=== PATIENT | female | born 1990 | race African-American/Black ===

== ENCOUNTER 2020-12-12 05:55 | Inpatient (IN) | payer OTHER, SELFPAY ==
[2020-12-10 12:31] LABS: BILIRUBIN,URINE NEGATIVE (NEGATIVE); BLOOD, URINE NEGATIVE (NEGATIVE); CLARITY/URINE CLEAR (CLEAR); COLOR,URINE YELLOW (YELLOW); GLUCOSE,URINE NEGATIVE (NEGATIVE); KETONES,URINE 3+ (NEGATIVE); LEUKOCYTE ESTERASE ,URINE NEGATIVE (NEGATIVE); NITRITE, URINE NEGATIVE (NEGATIVE); PH,URINE 5.5 (5.0-8.0); PROTEIN URINE NEGATIVE (NEGATIVE); UROBILINOGEN,URINE 0.2 (0.2-1.0)
[2020-12-10 12:34] LABS: BASOPHILS % (AUTO) 0.5 % (0.0-2.0); EOSINOPHILS % (AUTO) 0.1 % (0.0-4.0); HEMATOCRIT 36.1 % (36-48); HEMOGLOBIN 12.1 g/dL (12.0-16.0); LYMPHOCYTES # (AUTO) 1.9 K/uL (1.0-5.5); LYMPHOCYTES % (AUTO) 48.2 % (20.5-51.5); MEAN CORPUSCULAR HEMOGLOBIN 32 pg (27-31); MEAN CORPUSCULAR HGB CONC 34 % (32-36); MEAN CORPUSCULAR VOLUME 96 fL (79.0-98.0); MONOCYTES # (AUTO) 0.3 K/uL (0.0-1.0); MONOCYTES % (AUTO) 7.8 % (1.7-9.3); NEUTROPHILS # (AUTO) 1.7 K/uL (1.8-7.7); NEUTROPHILS % (AUTO) 43.4 % (40.0-70.0); PLATELET COUNT (AUTO) 164 K/uL (130-430); RED BLOOD CELL COUNT(AUTO) 3.77 MIL/uL (4.2-6.2); RED CELL DISTRIBUTION WIDTH 12.9 % (9.0-15.0); WHITE BLOOD COUNT (AUTO) 3.9 K/uL (4.8-10.8)
[2020-12-10 12:50] LABS: ALBUMIN 3.8 g/dL (3.4-4.8); CALCIUM 8.8 mg/dL (8.4-11.0); CREATININE 0.77 mg/dL (0.55-1.30); POTASSIUM 4.3 mmol/L (3.5-5.1); TOTAL BILIRUBIN 0.8 mg/dL (0.0-1.0)
[~2020-12-12] VITALS: Ht 167.6 cm; Wt 64.9 kg
[2020-12-12 06:36] LABS: HCG,QUAL RESULT NEGATIVE (NEGATIVE)
[2020-12-12] MEDS ORDERED: HYDROmorphone 2 MG/ML VIAL IVP ONE (07:31)
[2020-12-12] MEDS ORDERED: BUPIVACAINE /EPINEPHRINE/PF 0.25% 30 ML VIAL INJ ONE (07:31)
[2020-12-12] MEDS ORDERED: ROCURONIUM BROMIDE 10 MG/ML (ZEMURON) IV ONE (07:31)
[2020-12-12] MEDS ORDERED: PROPOFOL 200MG/ 20ML VIAL (DIPRIVAN) IV ONE (07:31)
[2020-12-12] MEDS ORDERED: ONDANSETRON HCL 4 MG/2 ML VIAL IVP ONE (07:31)
[2020-12-12] MEDS ORDERED: SUGAMMADEX SODIUM 200 MG/2 ML VIAL IV ONE (07:31)
[2020-12-12] MEDS ORDERED: SUCCINYLCHOLINE CHLORIDE 20 MG/ML(QUELICIN) IVP ONE (07:31)
[2020-12-12] MEDS ORDERED: LR 1,000 ML IV.SOLN IV ONE (07:31)
[2020-12-12] MEDS ORDERED: DESFLURANE 15 MIN GAS INH ONE (07:31)
[2020-12-12] MEDS ORDERED: DEXAMETHASONE SOD PHOSPHATE 4 MG/ML VIAL IVP ONE (07:31)
[2020-12-12] MEDS ORDERED: KETOROLAC TROMETHAMINE 30 MG VIAL IVP ONE (07:31)
[2020-12-12] MEDS ORDERED: NS IRRIG SOLN 1000 ML IR ONE (07:31)
[2020-12-12] MEDS ORDERED: ONDANSETRON HCL 4 MG/2 ML VIAL IVP PRN ×2 (07:45→09:45)
[2020-12-12] MEDS ORDERED: LR 1,000 ML IV ONE (07:45)
[2020-12-12] MEDS ORDERED: KETOROLAC TROMETHAMINE 30 MG VIAL IM PRN (07:45)
[2020-12-12] MEDS ORDERED: HYDROmorphone 1 INJ. 1 MG/ML CARTRIDGE IVP PRN ×2 (09:45)
[2020-12-12 10:57] VITALS: BP_SYST 111
[2020-12-12 12:00] VITALS: BP_SYST 98
[2020-12-12 16:09] VITALS: BP_SYST 102
[2020-12-12] MEDS: MORPHINE 4 MG INJ. 4 MG/ML VIAL IVP PRN ×2 (17:47→22:52)
[2020-12-12 20:00] VITALS: BP_SYST 113
[2020-12-13 00:11] VITALS: BP_SYST 117
[2020-12-13] MEDS: MORPHINE 4 MG INJ. 4 MG/ML VIAL IVP PRN ×3 (04:14→11:38)
[2020-12-13 08:00] VITALS: BP_SYST 122
[2020-12-13 08:03] LABS: BASOPHILS % (AUTO) 0.2 % (0.0-2.0); EOSINOPHILS % (AUTO) 0.1 % (0.0-4.0); HEMATOCRIT 28.4 % (36-48); HEMOGLOBIN 9.6 g/dL (12.0-16.0); LYMPHOCYTES # (AUTO) 1.2 K/uL (1.0-5.5); LYMPHOCYTES % (AUTO) 22.3 % (20.5-51.5); MEAN CORPUSCULAR HEMOGLOBIN 32 pg (27-31); MEAN CORPUSCULAR HGB CONC 34 % (32-36); MEAN CORPUSCULAR VOLUME 96 fL (79.0-98.0); MONOCYTES # (AUTO) 0.6 K/uL (0.0-1.0); NEUTROPHILS # (AUTO) 3.6 K/uL (1.8-7.7); NEUTROPHILS % (AUTO) 66.4 % (40.0-70.0); PLATELET COUNT (AUTO) 125 K/uL (130-430); RED BLOOD CELL COUNT(AUTO) 2.96 MIL/uL (4.2-6.2); RED CELL DISTRIBUTION WIDTH 12.9 % (9.0-15.0); WHITE BLOOD COUNT (AUTO) 5.4 K/uL (4.8-10.8)
[2020-12-13 12:05] VITALS: BP_SYST 95
[2020-12-13] MEDS ORDERED: IBUPROFEN 800 MG TABLET PO PRN (14:15)
[2020-12-13] MEDS: OXYCODONE/ACETAMINOPHEN 5-325 TABLET PO PRN ×2 (14:42→23:03)
[2020-12-13 16:05] VITALS: BP_SYST 92
[2020-12-13] MEDS ORDERED: IBUPROFEN 800 MG TABLET PO ONE (19:30)
[2020-12-13 20:00] VITALS: BP_SYST 113
[2020-12-13] MEDS: DOCUSATE SODIUM 100 MG CAPSULE PO SCH (20:06)
[2020-12-14 00:16] VITALS: BP_SYST 113
[2020-12-14] MEDS: IBUPROFEN 800 MG TABLET PO SCH ×2 (05:15)
[2020-12-14 08:00] VITALS: BP_SYST 119
[2020-12-14] MEDS: DOCUSATE SODIUM 100 MG CAPSULE PO SCH (08:45)
[2020-12-14 09:32] VITALS: BP_SYST 119
== END 2020-12-14 10:40 | disposition home or self-care (01) | DRG 743 ==
LOC: SDS 05:55 → SMU 07:40
PROVIDERS: ADMIT Obstetrics & Gynecology; ATTEND Obstetrics & Gynecology
PROC: 0UB90ZZ Excision of Uterus, Open Approach (ICD-10-PCS; principal; 2020-12-13)
PROC: 0UB20ZZ Excision of Bilateral Ovaries, Open Approach (ICD-10-PCS; 2020-12-13)
DX: D25.9 Leiomyoma of uterus, unspecified (principal); N83.202 Unspecified ovarian cyst, left side; N83.201 Unspecified ovarian cyst, right side; N92.0 Excessive and frequent menstruation with regular cycle; N94.6 Dysmenorrhea, unspecified; Z20.822 Contact with and (suspected) exposure to COVID-19
CPT/HCPCS: 36415; 80053; 81003; 84703; 85025; 87081; 88305; C9399; J0330; J1100; J1170; J1885; J2270; J2405; J2704; J3490; J7120